=== PATIENT | male | born 1955 | race Caucasian/White ===

== ENCOUNTER → 2018-03-31 | Outpatient (CLI) | payer MEDICARE, OTHER ==
[~2018-03-31] MED LIST: GABAPENTIN300 MG/6 M PO; GLIM2 PO; GLUCOSAMINE &1 EACH PO; INSULANPEN; Lovastatin10 MG PO; METF500C PO; Omeprazole20 M1 PO; Potassium Citra5 MEQ PO; Prinivil10 MG PO; ZYRTEC10 M1 PO
== END | disposition home or self-care (01) ==
LOC: PLD 08:24 → LAB SHORT 08:24
DX: B35.1 Tinea unguium (principal); L60.2 Onychogryphosis
CPT/HCPCS: 88305; 88312

== ENCOUNTER 2018-05-12 06:19 | Day surgery (SDC) | payer MEDICARE, OTHER ==
[~2018-05-12] VITALS: Ht 182.9 cm; Wt 117.8 kg
--- NOTE | 2018-05-12 08:35 | NUR ---
05/12/18 0835 Makenna Lee AT BEGINNING OF PROCEDURE PT O2 SATURATION DROPPED TO LOW 90S. TURNED O2 UP FROM 3L TO 5L. O2 SATURATION STABLE T/O.
== END 2018-05-12 09:05 | disposition home or self-care (01) ==
LOC: ORSCSDS 06:19
PROVIDERS: Internal Medicine Gastroenterology
PROC: 0DBM8ZX Excision of Descending Colon, Via Natural or Artificial Opening Endoscopic, Diagnostic (ICD-10-PCS; principal; 2018-05-12 08:00)
DX: Z12.11 Encounter for screening for malignant neoplasm of colon (principal); D12.4 Benign neoplasm of descending colon; K57.30 Diverticulosis of large intestine without perforation or abscess without bleeding; E11.42 Type 2 diabetes mellitus with diabetic polyneuropathy; E78.00 Pure hypercholesterolemia, unspecified
CPT/HCPCS: 82947; 88305; J0330; J1980; J2405; J7120

== ENCOUNTER → 2021-09-28 | Outpatient (CLI) | payer MEDICARE | END | disposition home or self-care (01) | LOC: LAB SHORT 08:05 → LAB 08:05 | DX: E11.40 Type 2 diabetes mellitus with diabetic neuropathy, unspecified (principal) | CPT/HCPCS: 82043 ==

== ENCOUNTER 2024-12-02 10:47 | Day surgery (SDC) | payer OTHER ==
[~2024-12-02] VITALS: Ht 177.8 cm; Wt 101.5 kg
[~2024-12-02 10:47] MED LIST changes: +Aspir 8181 MG PO; +Lipitor20 MG PO; +MULTI-VITAMIN1 EAC2 PO; +TAMSULOSIN HCL0.4 M1 PO; +VITAMIN D31250 MC2 PO
[2024-12-02] MEDS ORDERED: CeFAZolin Sodium 2,000 MG VIAL ONE (10:55)
[2024-12-02] MEDS ORDERED: JARDIANCE25 MG PO (11:16)
[2024-12-02] MEDS ORDERED: LISI5 PO (11:18)
[2024-12-02] MEDS ORDERED: OZEMPIC2 MG/0.75 SC (11:20)
[2024-12-02 12:13] VITALS: BP 123/64
--- NOTE | 2024-12-02 12:35 | NUR ---
12/02/24 1235 Jerry Marshall PT DENIES PAIN AND NAUSEA AT THIS TIME. PT AGREEABLE TO D/C HOME WITH SPOUSE [email or web address]
== END 2024-12-02 12:34 | disposition home or self-care (01) ==
LOC: ORSCSDS 10:47
PROVIDERS: Orthopaedic Surgery
PROC: 0LN80ZZ Release Left Hand Tendon, Open Approach (ICD-10-PCS; principal; 2024-12-02 13:45)
DX: M65.332 Trigger finger, left middle finger (principal); I10 Essential (primary) hypertension; E78.00 Pure hypercholesterolemia, unspecified; E11.9 Type 2 diabetes mellitus without complications; K21.9 Gastro-esophageal reflux disease without esophagitis; E66.9 Obesity, unspecified; Z68.31 Body mass index [BMI] 31.0-31.9, adult; Z79.82 Long term (current) use of aspirin; Z79.84 Long term (current) use of oral hypoglycemic drugs; Z79.4 Long term (current) use of insulin; Z79.899 Other long term (current) drug therapy; Z87.891 Personal history of nicotine dependence; Z79.85 Long-term (current) use of injectable non-insulin antidiabetic drugs
CPT/HCPCS: 82947; J0690; J7120